=== PATIENT | male | born 1980 | race Hispanic/Latino ===

== ENCOUNTER 2023-03-06 10:02 | Outpatient (CLI) | payer OTHER | END 2023-03-06 10:03 | disposition home or self-care (01) | LOC: CSHCT 10:02 | PROVIDERS: ATTEND Family Medicine | DX: Q67.8 Other congenital deformities of chest (principal); R22.2 Localized swelling, mass and lump, trunk | CPT/HCPCS: 71250 ==

== ENCOUNTER → 2025-05-30 | Day surgery (SDC) | payer BC ==
[2025-05-22 08:13] VITALS: BMI 30.4
[~2025-05-30] MED LIST: Lidocaine 1% PF 5 ML VIAL ONE; PROPOFOL 40 ML ONE
== END ==
LOC: CSHSDC 10:52
PROVIDERS: ATTEND Surgery
PROC: 0DJD8ZZ Inspection of Lower Intestinal Tract, Via Natural or Artificial Opening Endoscopic (ICD-10-PCS; principal; 2025-05-30)
DX: Z12.11 Encounter for screening for malignant neoplasm of colon (principal); E78.5 Hyperlipidemia, unspecified; Z80.0 Family history of malignant neoplasm of digestive organs
CPT/HCPCS: J2704